=== PATIENT | male | born 1940 | race Caucasian/White ===

== ENCOUNTER → 2016-05-12 | Outpatient (CLI) | payer OTHER, MEDICARE ==
--- NOTE | 2016-05-12 12:32 | DIAGNOSTIC IMAGING REPORT ---
CT SCAN OF THE ABDOMEN COMBO PANCREAS PROTOCOL CLINICAL HISTORY: Cystic pancreatic lesion. COMPARISON STUDY: No priors. TECHNIQUE: Following the IV administration of 115 cc of Optiray 320, CT scan of the abdomen is performed from the lung bases to the pelvic inlet utilizing the pancreas protocol. Images are reviewed in the axial, sagittal, and coronal planes. IV contrast was administered without complication. Automated dose control exposure was utilized. CT DOSE: 701.16 mGy.cm FINDINGS: Lung bases: The heart is normal in size and without pericardial effusion. Scarring is noted in the right middle lobe and lingula. Lung bases are otherwise clear. Liver: The contrast-enhanced liver is normal in size, contour, and attenuation. There is no intrahepatic biliary ductal dilatation. Hepatic and portal vasculature: Hepatic arterial anatomy is conventional. The hepatic veins, portal veins, superior mesenteric vein, and splenic vein are patent. Gallbladder: Unremarkable. Spleen: Normal in size and attenuation. Pancreas: The pancreas is atrophic. Numerous parenchyma calcifications suggest chronic pancreatitis. There is a 10 mm ovoid cystic lesion seen in the uncinate process on axial postcontrast image #150. This measures water density. No enhancing pancreatic mass lesion is seen. The pancreatic duct is normal in caliber. Adrenal glands: Unremarkable. Kidneys: No renal calculi are identified on the unenhanced series. The contrast enhanced kidneys are demonstrate mild cortical atrophy and are without hydronephrosis. The kidneys enhance symmetrically. A 3.9 cm cyst is noted in the interpolar right kidney. There is a 9 mm enhancing lesion identified in the upper pole of the right kidney seen on axial image #107. A 1.5 cm complex lesion is also seen in the lower pole of the left kidney on axial image #166 within a region of cortical scarring. Abdominal vasculature: The abdominal aorta is normal in course and caliber noting moderate atherosclerotic calcification. Bowel: Visualized portions of the small bowel and colon are normal in course and caliber. There is moderate colonic fecal retention. A normal appendix is partially visualized. Peritoneum: There is no intraperitoneal free air or abdominal ascites. Lymphadenopathy: None. Skeletal structures: The skeletal structures are osteopenic. Lumbosacral spondylosis is noted. No lytic or blastic lesions are seen. IMPRESSION: 1. Findings are consistent with chronic pancreatitis. 2. A 10 mm ovoid water attenuation lesion is seen in the uncinate process of the pancreas. The appearance is typical for a small sidebranch IPMN or mucinous cystic neoplasm. The appearance is not consistent with pancreatic adenocarcinoma. If further assessment is desired then endoscopic ultrasound would be appropriate. 3. There is a 9 mm enhancing nodule identified in the upper pole of the right kidney. This should be considered renal cell carcinoma until proven otherwise. 4. There is a complex lesion in the lower pole of left kidney measuring up to 1.5 cm. This does not clearly demonstrate postcontrast enhancement and could represent a complex cyst. MRI of this lesion could be considered for further interrogation. 5. Additional changes as above. Electronically signed by: Maximiliano Menard M.D. 05/12/2016 12:30 PM Dictated Date/Time: 05/12/2016 12:14 PM
== END | disposition home or self-care (01) ==
LOC: C.CTS 11:40
PROVIDERS: ATTEND Internal Medicine Gastroenterology
DX: K86.2 Cyst of pancreas (principal); N28.89 Other specified disorders of kidney and ureter

== ENCOUNTER → 2016-12-06 | Outpatient (CLI) | payer OTHER, MEDICARE ==
--- NOTE | 2016-12-06 10:53 | DIAGNOSTIC IMAGING REPORT ---
ULTRASOUND KIDNEYS AND BLADDER CLINICAL HISTORY: Renal cyst. COMPARISON STUDY: Abdominal CT dated 05/12/2016. TECHNIQUE: Real-time, grayscale, and color flow sonography of the kidneys and bladder is performed. Images are reviewed in the transverse and longitudinal planes. FINDINGS: Kidneys: The kidneys demonstrate mild cortical atrophy. The right kidney measures 8.9 x 4.8 x 5.9 cm and the left kidney measures 9.3 x 4.9 x 5.5 cm. There is no hydronephrosis. No shadowing renal calculi are identified. A 2.3 cm simple cyst is identified in the interpolar right kidney. No definite solid renal mass is seen. No perinephric fluid is identified. Bladder: The prostate gland is enlarged and there is median lobe hypertrophy. The bladder wall is thickened and trabeculated suggesting chronic outlet obstruction. Bilateral ureteral jets were seen. IMPRESSION: 1. The kidneys demonstrate cortical atrophy and are without hydronephrosis. 2. A simple cyst is identified in the interpolar right kidney. 3. The indeterminate lesion in the lower pole of the left kidney and the concerning subcentimeter enhancing nodule in the upper pole of the right kidney identified by CT on 05/12/2016 were not reliably visualized by ultrasound. Correlation a contrast-enhanced MRI of the kidneys is recommended for further assessment of both lesions. 4. Prostatomegaly with evidence of chronic bladder outlet obstruction. Electronically signed by: Maximiliano Menard M.D. 12/06/2016 10:52 AM Dictated Date/Time: 12/06/2016 10:47 AM
== END | disposition home or self-care (01) ==
LOC: C.ULTR 09:33
PROVIDERS: ATTEND Urology
DX: N28.1 Cyst of kidney, acquired (principal); N26.1 Atrophy of kidney (terminal); N40.1 Benign prostatic hyperplasia with lower urinary tract symptoms; N32.0 Bladder-neck obstruction

== ENCOUNTER → 2017-05-31 | Outpatient (CLI) | payer OTHER, MEDICARE ==
--- NOTE | 2017-05-31 15:01 | DIAGNOSTIC IMAGING REPORT ---
ULTRASOUND KIDNEYS AND BLADDER CLINICAL HISTORY: Renal cyst. COMPARISON STUDY: Abdominal CT dated 05/12/2016. TECHNIQUE: Real-time, grayscale, and color flow sonography of the kidneys and bladder is performed. Images are reviewed in the transverse and longitudinal planes. FINDINGS: Kidneys: The kidneys demonstrate cortical atrophy. The right kidney measures 9.9 x 5.7 x 6.5 cm and the left kidney measures 9.3 x 5.4 x 6.2 cm. There is no hydronephrosis. No shadowing renal calculi are identified. A 3.4 cm simple cyst is noted on the right. An additional subcentimeter cyst is noted in the right lower pole. There is no sonographic evidence of contour deforming renal mass lesion. No perinephric fluid is identified. Bladder: The prostate gland is enlarged and there is median lobe hypertrophy. The bladder wall appears mildly thickened and trabeculated suggesting chronic outlet obstruction. Bilateral ureteral jets were seen. IMPRESSION: 1. The kidneys demonstrate mild cortical atrophy and are without hydronephrosis. 2. Prostatomegaly with evidence of chronic bladder outlet obstruction. 3. A 3.4 cm simple cyst is noted in the right kidney. This is similar to prior studies. 4. The enhancing nodule in the right upper pole seen by CT on 05/12/2016 was not apparent by ultrasound. Electronically signed by: Maximiliano Menard M.D. 05/31/2017 2:59 PM Dictated Date/Time: 05/31/2017 2:49 PM
== END | disposition home or self-care (01) ==
LOC: C.ULTR 13:37
PROVIDERS: ATTEND Urology
DX: N28.1 Cyst of kidney, acquired (principal); N40.0 Benign prostatic hyperplasia without lower urinary tract symptoms